=== PATIENT | male | born 1980 | race Caucasian/White ===

== ENCOUNTER 2020-05-13 10:41 | Emergency (ER) | payer SELFPAY ==
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
== END 2020-05-13 11:05 | disposition home or self-care (01) ==
LOC: MW.ED 10:41
DX: Z00.8 Encounter for other general examination (principal)
CPT/HCPCS: 99282; 99283